=== PATIENT | female | born 1995 | race Caucasian/White ===

== ENCOUNTER 2016-07-15 05:00 | Day surgery (SDC) | payer OTHER ==
[~2016-07-15] VITALS: Ht 170.2 cm; Wt 145.5 kg
[~2016-07-15 05:00] MED LIST: MULT-506 PO
[2016-07-15] MEDS ORDERED: LEVO50TA6 PO (05:33)
[2016-07-15 05:35] VITALS: BP 132/77; PULSE 79; TEMP 36.7; O2SAT 97; Ht 170.2 cm; Wt 145.5 kg
[2016-07-15] MEDS ORDERED: EPP3/2 IM (05:36)
[2016-07-15] MEDS ORDERED: DIPH25CA65 PO (05:37)
[2016-07-15 05:40] LABS: HEMATOCRIT 42.1 % (37-47); MEAN CELL VOLUME 79.9 fL (80-100); MEAN CORPUSCULAR HEMOGLOBIN 26.9 pg (25-34); MEAN PLATELET VOLUME 9.6 fL (7.4-10.4); PLATELET COUNT 335 K/uL (130-400); RED BLOOD COUNT 5.27 M/uL (4.2-5.4); WHITE BLOOD COUNT 10.91 K/uL (4.8-10.8)
[2016-07-15 05:47] LABS: MEAN CORPUSCULAR HGB CONC 33.7 g/dl (32-36)
[2016-07-15] MEDS ORDERED: CEFAZOLIN 3000 MG/65 ML D5W IV SCH (06:00)
[2016-07-15] MEDS ORDERED: CEFAZOLIN 2000 MG/60 ML D5W IV SCH (06:00)
[2016-07-15] MEDS ORDERED: LACTATED RINGER'S 1000ML 1,000 ML IV SCH (06:00)
[2016-07-15 06:01] LABS: BUN/CREATININE RATIO 23.6 (10-20); CALCIUM 9.1 mg/dl (8.5-10.1); CREATININE 0.68 mg/dl (0.60-1.20)
[2016-07-15] MEDS ORDERED: METHYLENE BLUE 0.5% 10 ML VIAL ONE (07:08)
[2016-07-15] MEDS ORDERED: BUPIVACAINE 0.5 % 5 MG/1 ML MPF 30ML VIAL ONE (07:08)
[2016-07-15] MEDS ORDERED: LIDOCAINE HCL 1% 20 ML VIAL ONE (07:08)
[2016-07-15] MEDS ORDERED: FENTANYL CITRATE INJ 50 MCG/1 ML 2 ML VIAL ONE ×2 (07:13→07:46)
[2016-07-15] MEDS ORDERED: MIDAZOLAM HCL 1 MG/ML 2ML VIAL ONE (07:13)
--- NOTE | 2016-07-15 07:14 | History & Physical Bridge Note ---
H&P Re-Evaluation Bridge Note: I have examined the patient, reviewed the History & Physical and in the interval since the performance of the History & Physical I have noted the following changes of clinical significance: No changes noted
[2016-07-15] MEDS ORDERED: KETAMINE HCL INJ 50 MG/ML 10 ML VIAL ONE (07:17)
[2016-07-15] MEDS ORDERED: ATROPINE SULFATE 0.1 MG/ML 5ML SYR IV PRN (07:30)
[2016-07-15] MEDS ORDERED: EpHEDrine SULFATE INJ 50 MG/ML AMP IV PRN (07:30)
[2016-07-15] MEDS ORDERED: ONDANSETRON INJ 2 MG/ML 2 ML VIAL IV PRN (07:30)
[2016-07-15] MEDS ORDERED: ROCURONIUM BROMIDE 10 MG/ML 5 ML VIAL ONE (07:58)
[2016-07-15] MEDS ORDERED: SUCCINYLCHOLINE 100MG/5ML SYR IV ONE (07:58)
[2016-07-15] MEDS ORDERED: DEXAMETHASONE SOD INJ 4 MG/ML VIAL ONE (07:58)
[2016-07-15] MEDS ORDERED: LIDOCAINE HCL 2% 2 ML VIAL (20MG/ML) ONE (07:58)
[2016-07-15] MEDS ORDERED: PROPOFOL IV EMULSION 10 MG/ML 20 ML VIAL IV ONE (07:58)
[2016-07-15] MEDS ORDERED: ONDANSETRON INJ 2 MG/ML 2 ML VIAL ONE (07:58)
[2016-07-15] MEDS ORDERED: SODIUM CHLORIDE 0.9% INJ 10 ML VIAL ONE (08:03)
[2016-07-15] MEDS ORDERED: CEFAZOLIN SOD 1 GM VIAL ONE (08:09)
[2016-07-15] MEDS ORDERED: BACITRACIN OINT 15 GM TUBE ONE (08:15)
[2016-07-15] MEDS ORDERED: LARYING-O-JET KIT (LTA) EXT ONE ×2 (08:29)
[2016-07-15] MEDS ORDERED: SODIUM CHLORIDE 0.9% 1000ML 1,000 ML IV SCH (08:29)
[2016-07-15] MEDS ORDERED: OXYCODONE/ACETAMINOPHEN 5-325 TAB PO PRN (08:30)
[2016-07-15] MEDS ORDERED: KETOROLAC TROMETHAMINE 30 MG/ML VIAL IV. PRN (08:30)
[2016-07-15] MEDS ORDERED: CIPR1TAB10 PO (08:34)
[2016-07-15] MEDS ORDERED: OXYC-57 PO ×3 (08:34→08:55)
[2016-07-15] MEDS: FENTANYL CITRATE INJ 50 MCG/1 ML 2 ML VIAL IV PRN ×4 (08:45→09:17)
[2016-07-15] MEDS ORDERED: METOCLOPRAMIDE HCL INJ 5 MG/ML 2 ML VIAL ONE (09:21)
[2016-07-15] MEDS ORDERED: NURSING VERBAL MED ORDER ONE (09:30)
[2016-07-15 09:45] VITALS: BP 118/68; PULSE 71; TEMP 36.6; O2SAT 98
[2016-07-15 10:05] VITALS: BP 105/71; PULSE 76; TEMP 36.4; O2SAT 94
--- NOTE | 2016-07-15 10:18 | Anesthesiology Progress Note ---
Anesthesia Post Op Note Date & Time Jul 15, 2016 at 10:18 Vital Signs Pain Intensity: 1 Vital Signs Past 12 Hours Date Time Temp Pulse Resp B/P Pulse Ox O2 Delivery O2 Flow Rate FiO2 07/15/16 09:45 36.6 71 20 118/68 98 Room Air 07/15/16 09:35 108/64 07/15/16 09:34 36.4 07/15/16 09:32 66 16 99 07/15/16 09:32 61 16 07/15/16 09:30 116/61 07/15/16 09:27 66 16 99 07/15/16 09:27 64 16 07/15/16 09:26 62 16 92 07/15/16 09:26 64 16 07/15/16 09:25 110/70 07/15/16 09:21 69 16 07/15/16 09:21 68 16 96 07/15/16 09:20 114/72 07/15/16 09:18 68 16 93 07/15/16 09:18 71 16 07/15/16 09:15 129/78 07/15/16 09:13 69 16 95 07/15/16 09:13 69 16 07/15/16 09:10 125/77 07/15/16 09:08 77 16 96 07/15/16 09:08 74 16 07/15/16 09:05 113/75 07/15/16 09:03 75 13 99 07/15/16 09:03 74 13 07/15/16 09:02 76 16 07/15/16 09:02 75 16 99 07/15/16 09:00 131/65 07/15/16 08:57 76 16 98 07/15/16 08:57 80 16 07/15/16 08:55 127/68 07/15/16 08:52 79 16 93 07/15/16 08:52 83 16 07/15/16 08:50 119/73 07/15/16 08:47 76 22 07/15/16 08:47 73 22 100 07/15/16 08:46 92 18 100 07/15/16 08:46 91 18 07/15/16 08:45 140/91 07/15/16 08:41 80 23 07/15/16 08:41 79 23 98 07/15/16 08:40 131/94 07/15/16 08:36 81 22 98 07/15/16 08:36 82 22 07/15/16 08:35 138/90 07/15/16 08:31 78 16 07/15/16 08:31 78 16 133/96 100 07/15/16 08:31 35.9 83 18 133/96 100 Mask 10 07/15/16 05:35 36.7 79 18 132/77 97 Room Air Notes Mental Status: alert / awake / arousable, participated in evaluation Pt Amnestic to Procedure: Yes Nausea / Vomiting: adequately controlled Pain: adequately controlled Airway Patency, RR, SpO2: stable & adequate BP & HR: stable & adequate Hydration State: stable & adequate Anesthetic Complications: no major complications apparent
[2016-07-15 10:35] VITALS: BP 103/67; PULSE 70; TEMP 36.4; O2SAT 100
--- NOTE | 2016-07-15 10:57 | [facility] Post Operative Brief Note ---
Immediate Operative Summary Operative Date Jul 15, 2016. Pre-Operative Diagnosis pilonidal cyst Post-Operative Diagnosis pilonidal cyst Procedure(s) Performed Resection of Pilonidal Cyst Surgeon Dr. Jackelin Poe Cupola Melter Surgeon(s) none Estimated Blood Loss 10ml Findings pilonidal cyst Fluids (cc crystalloids) 800ml Specimens A. Pilonidal Cyst Drains none Anesthesia general Complication(s) None Disposition Recovery Room / PACU
--- NOTE | 2016-07-15 14:11 | OPERATIVE REPORT ---
DATE OF OPERATION: 07/15/2016 PREOPERATIVE DIAGNOSIS: Pilonidal cyst. POSTOPERATIVE DIAGNOSIS: Same. PROCEDURE: Resection pilonidal cyst. SURGEON: Jackelin Poe M.D. ANESTHESIA: General. ESTIMATED BLOOD LOSS: About 10 mL. FINDINGS: Pilonidal cyst. COMPLICATIONS: None. IV FLUIDS: 800 mL. DETAILS OF THE OPERATION: This is a 21-year-old female who presented pilonidal cyst and the patient required to do resection pilonidal cyst. The patient had couple times pilonidal cyst infection, now the infection is gone. I did talk to the patient about benefit and risk, alternate procedure. I indicated the risks may include but not limited such as bleeding, infection, recurrence, may need more procedure, even . The patient understands. She signed informed consent and I answered all questions. DETAILS OF PROCEDURE: We brought the patient to the OR. Patient received SCD on bilateral legs to prevent DVT. Also, the patient received 3 grams Ancef IV for prophylactic antibiotic. The patient received general anesthesia without difficulty. Then we repositioned the patient, put the face-down position. The lower bottom area was prepped and draped in routine sterile fashion. After timeout we found the patient has 2 skin openings about 4 cm apart, each opening about 1 cm. I made incision and completely removed the lower part sinus pilonidal cyst and found these 2 openings connect to each other a tunnel to remove the top of the skin opening and then I made another incisison to remove the top of the skin opening of the pilonidal cyst this pilonidal cyst. Completely removed pilonidal cyst. Hemostasis obtained. Then I used 2-0 Vicryl to close subcutaneous layer interrupted. Then using 2-0 Prolene interrupted and closed the retention suture for the skin. Then I used 3-0 nylon to close the skin interrupted. We put the dressing on. The patient tolerated the procedure well. After the procedure, I did give the patient's family member about the postop care instruction, they understand. I will follow up the patient in 1 week. The specimen sent to pathology. I attest to the content of the Intraoperative Record and any orders documented therein. Any exceptions are noted below. [place]
[2016-07-16] MEDS ORDERED: CEFAZOLIN IV 2,000 MG/60 ML D5W IV ONE (06:00)
== END 2016-07-15 11:08 | disposition home or self-care (01) ==
LOC: C.ACU 05:00
PROVIDERS: ATTEND Surgery
DX: L05.91 Pilonidal cyst without abscess (principal); E16.1 Other hypoglycemia; E03.9 Hypothyroidism, unspecified; Z98.890 Other specified postprocedural states; Z88.1 Allergy status to other antibiotic agents

== ENCOUNTER 2016-07-21 16:25 | Emergency (ER) | payer OTHER ==
[~2016-07-21] VITALS: Ht 170.2 cm; Wt 143.0 kg
[~2016-07-21 16:25] MED LIST changes: +CIPR1TAB10 PO; +DIPH25CA65 PO; +EPP3/2 IM; +LEVO50TA6 PO
[2016-07-21 16:33] VITALS: TEMP 37.1; Ht 170.2 cm; Wt 143.0 kg
[2016-07-21] MEDS ORDERED: SODIUM CHLORIDE 0.9% 1000ML 1,000 ML IV STA (16:50)
[2016-07-21] MEDS ORDERED: CIPR-255 PO (16:59)
[2016-07-21] MEDS ORDERED: OXYC-57 PO (16:59)
[2016-07-21 17:19] LABS: BASO % 0.3 %; BASO ABS # 0.04 K/uL (0-0.2); COMPLETE YES; EOS % 2.8 %; HEMATOCRIT 43.3 % (37-47); IG% 0.2 %; LYMPH % 26.1 %; LYMPH ABS # 3.53 K/uL (1.2-3.4); MEAN CELL VOLUME 78.9 fL (80-100); MEAN CORPUSCULAR HEMOGLOBIN 26.6 pg (25-34); MEAN CORPUSCULAR HGB CONC 33.7 g/dl (32-36); MEAN PLATELET VOLUME 9.9 fL (7.4-10.4); NEUT % 63.6 %; PLATELET COUNT 372 K/uL (130-400); RED BLOOD COUNT 5.49 M/uL (4.2-5.4); WHITE BLOOD COUNT 13.51 K/uL (4.8-10.8)
[2016-07-21 17:38] LABS: BUN/CREATININE RATIO 19.1 (10-20); CALCIUM 9.5 mg/dl (8.5-10.1); CREATININE 0.74 mg/dl (0.60-1.20); POTASSIUM 3.7 mmol/L (3.5-5.1)
[2016-07-21] MEDS ORDERED: MoRPHine SULFATE 4 MG/ML 1 ML CARP\\VIAL IV STA (18:40)
[2016-07-21] MEDS ORDERED: ONDANSETRON INJ 2 MG/ML 2 ML VIAL IV STA (18:40)
--- NOTE | 2016-07-21 19:24 | EMERGENCY ROOM VISIT NOTE ---
History First contact with patient: 16:39 Chief Complaint: WOUND INFECTION Stated Complaint: SURGICAL SIGHT IS SORE,TENDER,HAS DRAINAGE,SMELLS Nursing Triage Summary: Pt had 2 pilonidal cysts removed . Pt reports increasing redness, drainage, and pain. History of Present Illness The patient is a 21 year old female who presents to the Emergency Room via private vehicle accompanied by mother with complaints of "surgical site is sore , tender has drainage, smells". The patient states that this past , she had surgery performed here by Dr. Poe. She states that she had 2 pilonidal cyst excised. She states that the regions were sutured closed, and that she had been doing well up until 2 days ago when the inferior most incision began to have a drainage, as well as began to smell and became tender. She states the pain has increased in this region. She also feels that the area is reddened. She states that the pain pills have stop working. She also states that she was placed upon Cipro of which she has finished. She was instructed to not shower for the past 5 days and today's the first day in which she is allowed to shower. At this time she denies any fevers, chills. Review of Systems A complete 10-point Review of Systems was discussed with the patient, with pertinent positives and negatives listed in the History of Present Illness. All remaining Review of Systems questions can be considered negative unless otherwise specified. Past Medical/Surgical History Pilonidal cysts Family History Diabetes, heart disease, high blood pressure, cancer. Social History Smoking Status: Current Every Day Smoker Alcohol Use: occasionally Drug Use: none Housing Status: lives with family Social History: Patient lives at home with family, admits to tobacco use and denies alcohol products. Current/Historical Medications Scheduled Ciprofloxacin Hcl (Cipro), 500 MG PO DAILY Diphenhydramine Hcl (Benadryl Allergy), 2 CAP PO DIRECTED Epinephrine (Epipen), 0.3 MG IM UD Levothyroxine Sodium (Levothyroxine Sodium), 50 MCG PO DAILY Multivitamin (Multivitamin), 1 TAB PO DAILY Scheduled PRN Oxycodone/Acetaminophen 5MG/325MG (Percocet 5MG/325MG), 1-2 TABLETS PO Q6H PRN for Pain Allergies Coded Allergies: Sulfamethoxazole w/Trimethoprim (Unverified Allergy, Unknown, sick to stomach , 07/21/16) Uncoded Allergies: UNWASHED FRUIT (Allergy, Unknown, SWELLING, 12/31/10) Physical Exam Vital Signs Date Time Temp Pulse Resp B/P Pulse Ox O2 Delivery O2 Flow Rate FiO2 07/21/16 19:34 100 18 129/78 98 Room Air 07/21/16 17:53 80 12 130/82 07/21/16 16:33 37.1 95 20 140/93 98 Room Air Physical Exam VITAL SIGNS - Vital signs and nursing notes were reviewed. Patient is afebrile , blood pressure 140/93, non-tachycardic and is saturating well on room air 98%. GENERAL -21-year-old female appearing her stated age who is in no acute distress. She is nontoxic in appearance. Communicates well with provider and answers questions appropriately. SKIN - Without rashes. No petechial rashes. There are 2 healing incisions just inferior to the sacral region. The superior most incision is healing well with sutures intact. The second and inferior most region is showing wound dehiscence, with evidence of a yellow purulent drainage. This region is also foul-smelling in nature. Medical Decision & Procedures Laboratory Results 07/21/16 16:50 Red Blood Count 5.49, Mean Corpuscular Volume 78.9, Mean Corpuscular Hemoglobin 26.6, Mean Corpuscular Hemoglobin Concent 33.7, Mean Platelet Volume 9.9, Neutrophils (%) (Auto) 63.6, Lymphocytes (%) (Auto) 26.1, Monocytes (%) (Auto) 7.0, Eosinophils (%) (Auto) 2.8, Basophils (%) (Auto) 0.3, Neutrophils # (Auto) 8.58, Lymphocytes # (Auto) 3.53, Monocytes # (Auto) 0.95, Eosinophils # (Auto) 0.38, Basophils # (Auto) 0.04 07/21/16 16:50 Test 07/21/16 16:50 07/21/16 17:10 White Blood Count 13.51 K/uL (4.8-10.8) Red Blood Count 5.49 M/uL (4.2-5.4) Hemoglobin 14.6 g/dL (12.0-16.0) Hematocrit 43.3 % (37-47) Mean Corpuscular Volume 78.9 fL (80-100) Mean Corpuscular Hemoglobin 26.6 pg (25-34) Mean Corpuscular Hemoglobin Concent 33.7 g/dl (32-36) Platelet Count 372 K/uL (130-400) Mean Platelet Volume 9.9 fL (7.4-10.4) Neutrophils (%) (Auto) 63.6 % Lymphocytes (%) (Auto) 26.1 % Monocytes (%) (Auto) 7.0 % Eosinophils (%) (Auto) 2.8 % Basophils (%) (Auto) 0.3 % Neutrophils # (Auto) 8.58 K/uL (1.4-6.5) Lymphocytes # (Auto) 3.53 K/uL (1.2-3.4) Monocytes # (Auto) 0.95 K/uL (0.11-0.59) Eosinophils # (Auto) 0.38 K/uL (0-0.5) Basophils # (Auto) 0.04 K/uL (0-0.2) RDW Standard Deviation 39.7 fL (36.4-46.3) RDW Coefficient of Variation 13.9 % (11.5-14.5) Immature Granulocyte % (Auto) 0.2 % Immature Granulocyte # (Auto) 0.03 K/uL (0.00-0.02) Anion Gap 8.0 mmol/L (3-11) Est Creatinine Clear Calc Drug Dose 175.8 ml/min Estimated GFR () 132.4 Estimated GFR (Non- 114.2 BUN/Creatinine Ratio 19.1 (10-20) Calcium Level 9.5 mg/dl (8.5-10.1) Bedside Lactic Acid Venous 1.39 mmol/L (0.90-1.70) Medications Administered Medications (Trade) Dose Ordered Sig/Kendra Route Start Time Stop Time Status Last Admin Dose Admin Sodium Chloride (Nss 1000ml) 1,000 ml @ 999 mls/hr Q1H1M STAT IV 07/21/16 16:50 07/21/16 17:50 DC 07/21/16 17:05 999 MLS/HR Morphine Sulfate (MoRPHine SULFATE INJ) 4 mg NOW STAT IV 07/21/16 18:40 07/21/16 18:41 DC 07/21/16 18:45 4 MG Ondansetron HCl (Zofran Inj) 4 mg NOW STAT IV 07/21/16 18:40 07/21/16 18:41 DC 07/21/16 18:45 4 MG Medical Decision Patient was seen and evaluated as above. Because of the wound dehiscence, and the undetermined depth of the wound I did elect to obtain IV access and ordered basic labs to evaluate for infection. Point of care lactic was also obtained. There was a leukocytosis of 13.51, red blood cell count elevated at 5.49. No significant anemia noted. I suspect that the leukocytosis is secondary to the recent surgery and small pilonidal infection. There is elevation of neutrophils. PRP unremarkable. Point care lactic within normal limits. I did elect to discuss the case with my attending, and subsequently was recommended that I discussed the case with the on-call general surgeon. I spoke with Dr. Gill at 6:10 PM. He then stated that he would come to personally evaluate the patient. At 6:24 PM he personally evaluated the patient and recommended that I remove the inferior wound sutures, and packed the region with gauze. He notes that gauze should be packed in this region a few times per day. He also instructed me to secure this in place with tape. He recommended the patient follow-up with Dr. Poe. He recommended no antibiotics at this time. I do believe this is all reasonable, and with proper pediatric psychologist, the sutures were removed from the inferior incision, the region was thoroughly irrigated with saline, there was expression of pus and a minimal amount of blood. The area does appear to have granulation tissue deep, with evidence of wound healing. I do suspect that the wound will continue to heal well when packed with gauze and Clean. She was educated upon management of this. She was instructed to call Dr. Poe's office first thing tomorrow morning to inform them that she was seen in the emergency department. She was educated upon worrisome symptoms in which to return, had questions answered prior to discharge , and was discharged home in good condition. Impression Primary Impression: Wound dehiscence Departure Information Dispostion Home / Self-Care Condition GOOD Referrals Jj Caban M.D. (PCP) Patient Instructions My [facility] Additional Instructions You were seen in the emergency Department for wound dehiscence. Your blood work shows evidence of slight infection. Your case has been discussed with Dr. Gill, the on-call surgeon. He recommends that we remove the sutures, and had to pack the region multiple times daily until healed. He also recommends you continue with your appointment scheduled with Dr. Poe. He recommends no antibiotics at this time. Please do not submerge the area and water as we discussed. Please return to the emergency department with increased redness, swelling, drainage or fevers chills or any new/concerning symptoms. Please call the surgeon to perform the procedure first thing tomorrow to inform them that you were seen here in the emergency department. Please return to emergency department with any new/concerning symptoms.
[2016-07-21 19:34] VITALS: BP 129/78; PULSE 100; O2SAT 98
== END 2016-07-21 19:35 | disposition home or self-care (01) ==
LOC: C.EDB 16:27
DX: T81.31XA Disruption of external operation (surgical) wound, not elsewhere classified, initial encounter (principal); Y83.8 Other surgical procedures as the cause of abnormal reaction of the patient, or of later complication, without mention of misadventure at the time of the procedure; Z83.3 Family history of diabetes mellitus; Z80.9 Family history of malignant neoplasm, unspecified; Z80.49 Family history of malignant neoplasm of other genital organs; F17.210 Nicotine dependence, cigarettes, uncomplicated; Z79.899 Other long term (current) drug therapy

== ENCOUNTER 2017-08-29 11:04 | Day surgery (SDC) | payer OTHER ==
[2017-08-24 14:47] VITALS: BMI 46.0
[~2017-08-29] VITALS: Ht 172.7 cm; Wt 136.4 kg
[~2017-08-29 11:04] MED LIST changes: +ATROPINE SULFATE 0.1 MG/ML 5ML SYR IV PRN; -CIPR1TAB10 PO; -EPP3/2 IM; +EpHEDrine SULFATE INJ 50 MG/ML AMP IV PRN; +FENTANYL CITRATE INJ 50 MCG/1 ML 2 ML VIAL IV PRN; +HYDROmorphone INJ 1 MG/ML SYR IV PRN; +LACTATED RINGER'S 1000ML 1,000 ML IV SCH; -LEVO50TA6 PO; +LEVO75TA5 PO; -MULT-506 PO; +ONDANSETRON INJ 2 MG/ML 2 ML VIAL IV PRN; +PHENYLEPHRINE 100MCG/ML 5ML SYR IV PRN; +PROMETHAZINE HCL INJ 12.5 MG in SODIUM CHLORIDE 0.9% 50ML 50 ML IV PRN
[2017-08-29 11:25] VITALS: BP 132/86; PULSE 79; TEMP 37.2; O2SAT 98; Ht 172.7 cm; Wt 136.4 kg
[2017-08-29] MEDS ORDERED: ACET-1311 PO (11:30)
[2017-08-29] MEDS ORDERED: SCOPOLAMINE 1.5 MG TDSY TD ONE (12:39)
[2017-08-29] MEDS ORDERED: NURSING VERBAL MED ORDER ONE (12:45)
[2017-08-29] MEDS ORDERED: MIDAZOLAM HCL 1 MG/ML 2ML VIAL ONE ×2 (13:20)
[2017-08-29] MEDS ORDERED: FENTANYL CITRATE INJ 50 MCG/1 ML 2 ML VIAL ONE ×2 (13:20→15:18)
[2017-08-29] MEDS ORDERED: LIDOCAINE HCL 1% 20 ML VIAL ONE (14:37)
[2017-08-29] MEDS ORDERED: BUPIVACAINE 0.5 % 5 MG/1 ML MPF 30ML VIAL ONE (14:37)
[2017-08-29] MEDS ORDERED: DEXAMETHASONE SOD INJ 4 MG/ML VIAL ONE (15:17)
[2017-08-29] MEDS ORDERED: ROCURONIUM BROMIDE 10 MG/ML 5 ML VIAL ONE (15:17)
[2017-08-29] MEDS ORDERED: ONDANSETRON INJ 2 MG/ML 2 ML VIAL ONE (15:17)
[2017-08-29] MEDS ORDERED: PROPOFOL IV EMULSION 10 MG/ML 20 ML VIAL ONE (15:17)
[2017-08-29] MEDS ORDERED: LARYING-O-JET KIT (LTA) ONE (15:20)
[2017-08-29] MEDS ORDERED: LIDOCAINE HCL 2% 2 ML VIAL (20MG/ML) ONE (15:20)
[2017-08-29] MEDS ORDERED: SODIUM CHLORIDE 0.9% 1000ML 1,000 ML IV SCH (15:53)
--- NOTE | 2017-08-29 15:53 | [facility] Post Operative Brief Note ---
Immediate Operative Summary Operative Date August 29, 2017. Pre-Operative Diagnosis Pilonidal cyst Post-Operative Diagnosis same Procedure(s) Performed excision of pilonidal cyst Surgeon Dr. Del Real Clip Bolter And Wrapper Surgeon(s) None Estimated Blood Loss 10ml Findings Consistent with Post-Op Diagnosis Specimens A. pilonidal cyst (permanent) Drains None Anesthesia Type General Complication(s) none Disposition Disposition: Recovery Room / PACU
[2017-08-29] MEDS ORDERED: MoRPHine SULFATE 4 MG/ML 1 ML CARP\\VIAL IV PRN (16:00)
[2017-08-29] MEDS ORDERED: OXYCODONE/ACETAMINOPHEN 5-325 TAB PO PRN (16:00)
[2017-08-29] MEDS ORDERED: ONDANSETRON INJ 2 MG/ML 2 ML VIAL IV PRN (16:00)
[2017-08-29] MEDS ORDERED: CHECK SCOPOLAMINE PATCH PLACEMENT SCH (16:00)
--- NOTE | 2017-08-29 16:06 | Discharge Instructions ---
Discharge Instructions Date of Service August 29, 2017. 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 Instructions / Follow-Up Instructions / Follow-Up ACTIVITY RECOMMENDATIONS: * No heavy lifting for 4 weeks. MEDICATIONS: Resume previous medications unless instructed otherwise by your surgeon. * Percocet 5/325 mg 1 every 4 hours, as needed for pain * Colace 100 mg 2 times per day * Ibuprofen 600 mg every 6 hours, as needed for pain SPECIAL CARE INSTRUCTIONS: * Remove dressings tomorrow. Replace dressings after showering if there is drainage * Call the surgeon's office with any questions or concerns - ( ex. temperature higher than 101 degrees F, excessive bleeding or pain). FOLLOW UP VISIT: If not already scheduled, please call the office to schedule a two week follow- up appointment. Office number . Current Hospital Diet Patient's current hospital diet: Discharge Diet Recommended Diet: Regular Diet Procedures Procedures Performed: excision of pilonidal cyst Pending Studies Studies pending at discharge: yes List of pending studies: Pathology Medical Emergencies . Who to Call and When: Medical Emergencies: If at any time you feel your situation is an emergency, please call 911 immediately. . Non-Emergent Contact Non-Emergency issues call your: Primary Care Provider, Surgeon Call Non-Emergent contact if: your pain is worsening, wound has increased redness, wound has increased pain . "Provider Documentation" section prepared by Gary Del Real. .
--- NOTE | 2017-08-29 16:44 | Anesthesiology Progress Note ---
Anesthesia Post Op Note Date & Time August 29, 2017 at 16:44 Vital Signs Pain Intensity: 3 Vital Signs Past 12 Hours Date Time Temp Pulse Resp B/P (MAP) Pulse Ox O2 Delivery O2 Flow Rate FiO2 08/29/17 16:35 79 14 131/57 100 Room Air 08/29/17 16:25 80 13 139/85 97 Free Flow/Blowby 10 08/29/17 16:15 73 10 129/90 100 Free Flow/Blowby 10 08/29/17 16:07 36.1 69 12 132/79 99 Oxymask 10 08/29/17 11:25 37.2 79 18 132/86 (101) 98 Room Air Notes Mental Status: alert / awake / arousable, participated in evaluation Pt Amnestic to Procedure: Yes Nausea / Vomiting: adequately controlled Pain: adequately controlled Airway Patency, RR, SpO2: stable & adequate BP & HR: stable & adequate Hydration State: stable & adequate Anesthetic Complications: no major complications apparent
[2017-08-29 16:50] VITALS: BP 121/66; PULSE 62; TEMP 36.7; O2SAT 100
[2017-08-29 17:20] VITALS: BP 104/60; PULSE 60; TEMP 36.7; O2SAT 100
--- NOTE | 2017-08-29 20:43 | OPERATIVE REPORT ---
DATE OF OPERATION: 08/29/2017 PREOPERATIVE DIAGNOSIS: Pilonidal cyst. POSTOPERATIVE DIAGNOSIS: Pilonidal cyst. PROCEDURE: Excision of pilonidal cyst. SURGEON: Gary Del Real MD FINDINGS: The patient had an area of hyperplastic tissue just superior to the gluteal crease in the midline. There were 4 other very small clefts beginning approximately 1.5 cm inferior to the opening and they each were about 5-6 mm apart. There was some skin disruption inferiorly to that. There was a wide cyst in the upper portion just below where the hyperplastic tissue from where it had drained was located. TECHNIQUE: The patient was given a general anesthesia, positioned in a prone position, and the area was prepped and draped in the usual sterile fashion. The elliptical incision measuring less than a cm wide except for where the cyst was located, which was a cm wide was sketched on the skin. The right-sided incision was performed and hemostasis was obtained using electrocautery. The left side of the incision was performed and hemostasis was obtained. I then began inferiorly working anteriorly towards the postsacral fascia and in the lower portion then began to peel the specimen away working from inferior to superior. I had to remain wide in the upper portion and ended up being about 2 cm wide in the subcutaneous tissue in that site, but it was peeled away from normal fatty tissue keeping some fatty tissue with the cyst and then peeled off the deeper tissues. Specimen was sent for pathology. The area of dissection was inspected and meticulous hemostasis was obtained. Skin flaps were created at about half the thickness of the subcutaneous tissue around the entire circumference. That allowed me to then close the deep tissues using interrupted 0 Vicryl. The superficial flap was closed with interrupted 0 Vicryl in the deeper portion, a running Vicryl in the more superficial portion and all the Vicryl was 2-0. The skin was then closed with 3-0 and 4-0 nylon vertical mattress sutures. The estimated blood loss was 5 mL. Sponge, needle, and instrument counts were correct prior to closure. The patient tolerated the surgical procedure without complication and was transferred to recovery. I attest to the content of the Intraoperative Record and any orders documented therein. Any exception s are noted below.
== END 2017-08-29 17:33 | disposition home or self-care (01) ==
LOC: C.ACU 11:04
PROVIDERS: ATTEND Surgery
DX: L05.91 Pilonidal cyst without abscess (principal); E03.9 Hypothyroidism, unspecified; F32.9 Major depressive disorder, single episode, unspecified; F17.200 Nicotine dependence, unspecified, uncomplicated; Z90.89 Acquired absence of other organs; Z98.890 Other specified postprocedural states; Z79.899 Other long term (current) drug therapy; Z88.1 Allergy status to other antibiotic agents